=== PATIENT | female | born 1995 | race Caucasian/White ===

== ENCOUNTER 2017-01-26 15:59 | Emergency (ER) | payer OTHER ==
[~2017-01-26] VITALS: Ht 157.5 cm; Wt 52.2 kg
--- NOTE | 2017-01-26 16:06 | ED PSYCHIATRIC COMPLAINT ---
History of Present Illness General Chief Complaint: Psychiatric Related Complaint Stated Complaint: WANTS TO SPEAK TO CRISIS, +SI Source: patient Exam Limitations: no limitations Reconcile Medications No Known Home Medications Triage Nurses Notes Reviewed? yes Onset: Abrupt Duration: week(s): (1) Timing: recent history Severity: moderate, severe Associated Symptoms: anxiety, suicidal ideation, depressed, drug abuse : No HPI: 21 year old female presents to the ER feeling suicidal with a plan to overdose on heroin. She states that she has an iv drug problem, recently lost her job and was just evicted from her apartment. She states the she has lost contact with her family and feels very depresssed and that she is worried about feeling like she wants to . No homicidal ideation. No previous suicide attempts. She usully uses 1.5 bundles and states she last used this morning. She occasionally uses crack cocaine but not recently. She last used heroin this morning. (Lele SPAULDING,Mel) Vital Signs & Intake/Output Vital Signs & Intake/Output Vital Signs Date Time Temp Pulse Resp B/P B/P Pulse O2 O2 Flow FiO2 Mean Ox Delivery Rate 01/27 1424 97.2 74 18 108/68 99 Room Air 01/27 1232 97.6 96 18 127/70 98 Room Air 01/27 1158 97.6 96 18 127/70 01/27 1019 98.0 80 18 118/70 97 Room Air 01/27 0819 97.8 88 18 110/60 98 Room Air 01/27 0632 98.4 93 20 102/56 99 Room Air 01/27 0511 98.0 01/27 0511 98.0 96 18 109/72 01/27 0445 98.0 96 18 109/72 99 Room Air 01/27 0107 98.7 01/27 0103 98.7 110 18 120/81 100 Room Air 01/26 2208 98.6 116 18 116/99 99 01/26 2026 99.3 110 18 121/79 100 01/26 1836 99.9 86 16 118/69 98 Room Air ED Intake and Output 01/27 0000 01/26 1200 Intake Total Output Total Balance Patient 115 lb Weight Weight Reported by Patient Measurement Method Allergies Coded Allergies: shellfish derived (Severe, ANAPHYLAXIS 01/26/17) nickel (Intermediate, RASH 01/26/17) cat dander (SNEEZNG COUGH 01/26/17) Uncoded Allergies: ROACHES (Intermediate, DYSPNEA 01/26/17) (Bridget SPAULDING,Angel Jeffery) Past History Travel History Traveled to [place] past 21 day No Medical History Any Pertinent Medical History? see below for history Neurological: NONE EENT: NONE Cardiovascular: NONE Respiratory: NONE Gastrointestinal: NONE Hepatic: hepatitis C Renal: NONE Musculoskeletal: NONE Psychiatric: NONE Endocrine: NONE Blood Disorders: NONE Cancer(s): NONE Surgical History Surgical History: non-contributory Psychosocial History Who do you live with Friend What is your primary language Romanian Family History Comment: JOHN ADOPTED - STATES PARENTS WERE SUBSTANCE ABUSERS, BOTH GRANDMOTHERS COMITTED SUICIDE Hx Contributory? Yes (Mel Royal MD) Review of Systems Review of Systems Constitutional: Reports: malaise, weakness. Denies: chills, fever. EENTM: Reports: no symptoms. Respiratory: Denies: cough, short of breath, sputum production. Cardiovascular: Denies: chest pain, palpitations. GI: Reports: no symptoms. Genitourinary: Reports: no symptoms. Musculoskeletal: Reports: no symptoms. Skin: Reports: no symptoms. Neurological/Psychological: Reports: anxiety, depressed, emotional problems. Hematologic/Endocrine: Denies: bruising, bleeding. Immunologic/Allergic: Denies: splenectomy. All Other Systems: Reviewed and Negative (Mel Royal MD) Physical Exam Physical Exam General Appearance: alert, awake, cachetic, mild distress, thin Head: atraumatic Eyes: Bilateral: PERRL, EOMI. Ears, Nose, Throat: normal pharynx, normal ENT inspection, hearing grossly normal Neck: normal inspection, supple Respiratory: normal breath sounds Cardiovascular: regular rate/rhythm Gastrointestinal: soft, non-tender Extremities: normal range of motion Neurological/Psychiatric: no motor/sensory deficits, awake, alert, depressed affect Appearance/Memory/Insight: disheveled, impaired insight Behavoir/Eye Contact/Speech: normal speech, good eye contact Thoughts/Hallucinations: no apparent hallucination Skin: intact, normal color, warm/dry SAD PERSONS SAD PERSONS Response Value Depression/Hopelessness? yes 2 Excessive Ethanol/Drug Use? yes 1 Rational Thinking Loss? yes 2 Single//? yes 1 Social Support? has no support 1 Stated Future Intent? yes 2 Total 9 SAD PERSONS Done? yes (Mel Royal MD) Progress Differential Diagnosis: HEROIN ABUSE, SUICIDAL IDEATION, DEPRESSION, ANXIETY Hand-Off Endorsed To: Bridget SPAULDING,Angel Jeffery Endorsed Time: 1899 Pending: consult (CRISIS) (Mel Royal MD) Plan of Care: Orders Procedure Date/time Status Vital Signs 01/27 2016 Active Laboratory Tests 01/26/17 1628: Urine Opiates Screen < 100.00, Methadone Screen < 40, Barbiturate Screen < 60, Ur Phencyclidine Scrn < 6.00, Amphetamines Screen 110, U Benzodiazepines Scrn < 85, Urine Cocaine Screen 185, Urine Cannabis Screen < 5.00 LABS, ETOH, UTOX, ORDERED. PATIETN WILL BE EVALUATED BY CRISIS. 7:19 AM 01/27 PATIENT SIGNED OUT TO ME BY DR ESTRADA. PENDING CRISIS EVALUATION AND DISPOSITION. 4:20 PM PATIENT CLEARED TO GO TO [facility] FOR INPATIENT REHAB FOR SUBSTANCE ABUSE. (Mel Royal MD) Comments: 01/26/2017 7:34:17 PM patient signed out to me by Dr. 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 To be reevaluated in the morning by crisis. 01/26/2017 10:46:36 PM patient requested something to help with sweating nausea and body aches., DYLNO does appear somewhat uncomfortable so I have ordered clonidine Zofran and ibuprofen. 01/27/2017 6:56:16 AM patient signed out to Dr. 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 (Bridget SPAULDING,Angel Jeffery) Departure Departure Time of Disposition: 1620 Disposition: HOME OR SELF CARE Condition: Stable Clinical Impression Primary Impression: Heroin abuse Secondary Impressions: Depression Referrals: Patient Has No Primary Care Dr (PCP/Family) Additional Instructions: FOLLOW UP WITH [facility] TODAY FOR REHAB Departure Forms: Customer Survey General Discharge Information Prescriptions: Current Visit Scripts No Known Home Medications (Mel Royal MD)
[2017-01-26 16:40] LABS: ABSOLUTE BASOPHIL COUNT 0 /CUMM (0.0-0.2); ABSOLUTE EOSINOPHIL COUNT 0.1 /CUMM (0.0-0.7); ABSOLUTE GRANULOCYTE CT 4.4 /CUMM (1.4-6.5); ABSOLUTE LYMPH COUNT 1.1 /CUMM (1.2-3.4); ABSOLUTE MONOCYTE COUNT 0.4 /CUMM (0.10-0.60); BASOPHIL % 0.4 % (0.0-2.0); EOSINOPHIL % 2.2 % (0-5); GRANULOCYTE % 72.8 % (42.2-75.2); HEMATOCRIT 37.8 % (37-47); MEAN CORPUSCULAR HGB 30.4 PG (27.0-31.0); MEAN CORPUSCULAR HGB CONC 33.4 G/DL (33.0-37.0); MEAN CORPUSCULAR VOLUME 91.2 FL (81.0-99.0); MEAN PLATELET VOLUME 7.4 FL (7.4-10.4); PLATELET COUNT 335 /CUMM (130-400); RBC DISTRIBUTION WIDTH 13.6 % (11.5-14.5); RED BLOOD CELL CT 4.15 /CUMM (4.20-5.40); WHITE BLOOD CELL COUNT 6.1 /CUMM (4.8-10.8)
--- NOTE | 2017-01-26 20:11 | ED PSYCH CRISIS CONSULTATION ---
See Addendum Crisis Consult Basic Assessment Date of Consult: 01/26/17 Responsible Person/Accompanied By: by a friend/ alone Insurance Authorization: Insurance #1: Insurance name: FAZAL ARAIZA Phone number: Policy number: [id number] Group number: Authorization number: ED Provider: Patient's ED Provider: Mel Royal MD Primary Care Physician: Patient's PCP: Patient Has No Primary Care Dr PCP's Phone Number: Current Psychiatrist: None Chief Complaint: Psychiatric Related Complaint Patient's Quote: "I have a bad addiction and depression" Present Illness: Pt is a 21 year old female, who arrived to the ER "by a friend" because she reports she uses Heroin daily a bundle and a half for the past 5 months, and today she was evicted and her car broke down. I spoke to her Mother who resides in [place], and reports to be on disability, who states the last time she spoke to her daughter was 8 days ago, and she told her she was on waitlists for rehabs , her Mother offers, "I don't know if she was lying, she also told me she was clean", her Mother states she can come back home, but needs to go to detox and rehab first "that's what she needs". Mother states she has a boyfriend "Mahin" and asks if he is there with her, I do not disclose this information. The pt has told this information writer that her boyfriend is Jacob and he lives in [place]. The pt states she has [facility] and to a rehab once or twice but can not recall the exact time frame, she thinks it was [facility] in 2016. The pt's Mother states she has been to a rehab in [place] when she ws 18 or so. Pt denies si/hi/ah/vh, she admits to feeling hopeless and has no place to go, she doesn't know what to do. Pt reports poor sleeping and eating habits, and drug seeking behaviors. Pt appears to be sweating, is tearful, and looks sad. Pt states she has a court date for drug related charges on 02/07/17. She does not work, and her only support would be her Mother. She was living on her own until her eviction today. SHe reports not to have any current psych providers, and states at some point this year she was admitted to [facility] for a similar presentation and did not follow through with IOP recommendations. Pt tox screen is negative. She denies being prescribed any medications. Patient's Address: [address] [place] [address] Other Phone Number: Who Do You Live With? Friend Family/Informants Interviewed: [phone] Jessica Johnson use this contact number, reports her daughter needs to go to detox and rehab. Allergies - Coded Allergies: shellfish derived (Severe, ANAPHYLAXIS 01/26/17) nickel (Intermediate, RASH 01/26/17) cat dander (SNEEZNG COUGH 01/26/17) Uncoded Allergies: ROACHES (Intermediate, DYSPNEA 01/26/17) Current Medications - No Known Home Medications Laboratory Results: Laboratory Tests 01/26/17 1628: Urine Opiates Screen < 100.00, Methadone Screen < 40, Barbiturate Screen < 60, Ur Phencyclidine Scrn < 6.00, Amphetamines Screen 110, U Benzodiazepines Scrn < 85, Urine Cocaine Screen 185, Urine Cannabis Screen < 5.00 01/26/17 1615: Anion Gap 9, Estimated GFR > 60, BUN/Creatinine Ratio 15.0, Glucose 92, Calcium 9.7, Total Bilirubin 0.3, AST 18, ALT 19, Alkaline Phosphatase 76, Total Protein 7.1, Albumin 3.9, Globulin 3.2, Albumin/Globulin Ratio 1.2, Total Beta HCG NEGATIVE, CBC w Diff NO MAN DIFF REQ, RBC 4.15 L, MCV 91.2, MCH 30.4, RDW 13.6, MPV 7.4, Gran % 72.8, Lymphocytes % 18.7 L, Monocytes % 5.9, Eosinophils % 2.2, Basophils % 0.4, Absolute Granulocytes 4.4, Absolute Lymphocytes 1.1 L, Absolute Monocytes 0.4, Absolute Eosinophils 0.1, Absolute Basophils 0, PUBS MCHC 33.4, Serum Alcohol < 10.0 Past History Past Medical History Neurological: NONE EENT: NONE Cardiovascular: NONE Respiratory: NONE Gastrointestinal: NONE Hepatic: hepatitis C Renal: NONE Musculoskeletal: NONE Psychiatric: NONE Endocrine: NONE Blood Disorders: NONE Cancer(s): NONE 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 Physical Limitations (Interventions): None identified Psychiatric Treatment History Psych Treatment Psychiatric Treatment Yes Inpatient Treatment Yes Outpatient Treatment No Location of Treatment [facility] (unclear if she was admitted or held in ER) Reason for Treatment opiate use and depression Dates of Treatment 2016 Response to Treatment did not attend IOP/ unknown otherwise Diagnosis by History: none known pt reports "depression" no treatment history Substance Use/Abuse History Drug Use/Abuse Substances Used/Abused Yes Substance Used/Abused Heroin First Use 18 Last Used today How much used/taken bundle and half How often daily For how long 5 months/ on and off for 3 years Route of use IV Substance Abuse Treatment Substance Abuse Treatment Past Substance Abuse TX Yes Inpatient Treatment Yes Outpatient Treatment No Location of Treatment [facility] Reason for Treatment heroinu Dates of Treatment unclear ?2016 Response to Treatment unknown Current Mental Status Mental Status Orientation: Person, Place, Situation Affect: Hopeless, Sad Speech: WNL Neuro-vegetative: Appetite Decreased, Hyperactivity, Loss of Interest, Sleep Disturbance Appearance Appearance- Dress/Hygiene: unkempt Behaviors Thought Process: WNL Thought Content: WNL Memory: WNL Insight: Fair SI/HI Risk Assessment Past Suicidal Ideation/Attempts No Current Suicidal Ideation/Att No Past Homicidal Ideation/Att: No Current Homicidal Ideation/Attempts No Degree of Intent: Thoughts/No Intent Danger To: Self Risk Factors: age (under 24/over 65), substance abuse, isolate/no social support , poor impulse control Lethality Ratin PTSD Checklist PTSD Done? patient declined ED Management Sitter: Yes Restraints: No DSM5/PS Stressors/Medical Prob Diagnosis' (DSM 5, Stressors, Medical): Opiate Use D/O Moderate F 11.20 Unspecifed Depressive D/O F32.9 family stress, financial, housing Current GAF: 30 Departure Disposition Psych Medical Clearance Date: 01/26/17 Medically Cleared at: 1800 Time Started: 1800 Time Ended: 1899 Psychiatrist Consulted: Ac Thrasher Date Disposition Established: 01/26/17 Time Disposition Established: 1899 Plan for Disposition - Modality: H/O Facility: Pt wants to call detox/rehabs in morning Follow-up Appt Date: 01/27/17 Rationale for Disposition: Consulted with Dr. Thrasher, pt to be held over, no strong admission criteria met looking for detox/rehab feeling depressed, observe overnight and follow up in morning Referrals Patient Has No Primary Care Dr (PCP/Family)
[2017-01-27 14:24] VITALS: BP 108/68
--- NOTE | 2017-01-27 15:19 | ED PSYCHIATRIST/APRN CONSULT ---
Psychiatrist/BOOSTER PUMP OPERATOR ED Consult Assessment and Plan: Chart reviewed, spoke with ED Crisis SW extensively regarding patient. Briefly, 21 y/o single, undomiciled, unemployed CF with history of opioid use disorder presenting last evening requesting to speak with crisis SW. Her primary concerns were her ongoing opioid use and psychosocial difficulties. At time of presentation she denied SI/HI or AVH. She was held over for further evaluation today. On my interview today, Mariam reports experiencing sx's of opioid withdrawal, including diaphoresis, irritability, yawning, abd pain. She confirms above story , reports her primary concern is her ongoing substance use and requests help with detox and rehab. She does report vague SI though on further investigation she denies a desire to be , rather speaks of SI as an indicator of her hopeless state of ongoing drug use. She denies manic or psychotic symptoms. She has not followed through with outpatient treatment despite recent hospitalization at [facility] and referral to an IOP. Labs were reviewed - her utox is negative for opiates though this patient is unsure whether her recent substnce use was heroin or oxycodone or fentanyl. Remainder of labs are largely wnl and her test was negative. MSE: disheveled appearing thin CF, multiple tattoos, tired appearing. Fair eye contact. Mildly diaphoretic. Speech was wnl. Mood "i'm withdrawing and feel terrible". Affect constricted, mildly labile. TP was log/linear. TC focused on withdrawal symptoms. +hopelessness, denies intent or plan to harm self. Denies HI. Denies perceptual disturbance. Cognition grossly intact. I/J limited. A/P: Proximal precipitant for current presentation appears to be for assistance with malignant opioid use disorder, and she does demonstrate signs/sx's of opioid withdrawal despite negative utox (suggesting fentanyl or oxycodone use). my impression is that her description of vague SI which is intermittent depending on the interviewer is her attempt to avoid discharge in the event residential substance use treatment is not identified, which is consistent with her history of poor coping strategies. We will attempt to arrange detox and substnce use treatment for her while continuing to observe her for concerns regarding safety such as suicidal ideation with plan or intent. -Would recommend clonidine withdrawal protocol: 0.1 mg clonidine q4-6H PRN opiate withdrawal symptoms, with careful monitoring for hypotension. -Adjunctives include ibuprofen for muscle aches, bentyl for stomach pain, trazodone for sleep, atarax for anxiety
== END 2017-01-27 18:31 ==
LOC: ERH 15:59
PROVIDERS: Emergency Medicine
DX: F11.10 Opioid abuse, uncomplicated (principal); F32.9 Major depressive disorder, single episode, unspecified
CPT/HCPCS: 80307; G0463; G0480; J2405; J3101